=== PATIENT | female | born 1945 | race Caucasian/White ===

== ENCOUNTER 2022-05-23 09:13 | Outpatient (CLI) | payer MEDICARE, BC | END 2022-05-23 09:14 | disposition home or self-care (01) | LOC: CSHCP 09:13 | PROVIDERS: ATTEND Internal Medicine Critical Care Medicine | DX: R06.09 Other forms of dyspnea (principal); J98.4 Other disorders of lung | CPT/HCPCS: 94060; 94726; 94729; 94760 ==